=== PATIENT | male | born 2005 | race Asian ===

== ENCOUNTER 2024-08-25 15:02 | Emergency (ER) | payer OTHER ==
[~2024-08-25] VITALS: Ht 170.2 cm; Wt 80.9 kg
[2024-08-25 15:13] VITALS: TEMP 98.4
[2024-08-25] MEDS ORDERED: IBUP-1492 PO (19:28)
[2024-08-25 19:32] VITALS: BP 112/77; PULSE 66; RESP 15; O2SAT 99
== END 2024-08-25 19:40 | disposition home or self-care (01) ==
LOC: EMS 15:02
DX: S16.1XXA Strain of muscle, fascia and tendon at neck level, initial encounter (principal); S40.022A Contusion of left upper arm, initial encounter; M25.512 Pain in left shoulder; V49.40XA Driver injured in collision with unspecified motor vehicles in traffic accident, initial encounter; Y93.89 Activity, other specified; Y92.410 Unspecified street and highway as the place of occurrence of the external cause; Y99.8 Other external cause status
CPT/HCPCS: 72125; 99284; Z7502